=== PATIENT | male | born 1985 | race Caucasian/White ===

== ENCOUNTER 2023-01-28 10:07 | Emergency (ER) | payer BC ==
[2023-01-28] MEDS ORDERED: SODIUM CHLORIDE 0.9% 1000 ML INFUS.BAG IV ONE (10:32)
[2023-01-28] MEDS ORDERED: morphine CARPU-JECT 4 MG/1 ML DISP.SYRIN IVPUSH ONE (10:32)
[2023-01-28] MEDS ORDERED: ONDANSETRON 4 MG/2 ML VIAL IVPUSH ONE (10:32)
[2023-01-28] MEDS ORDERED: morphine SULFATE 4 MG/ML VIAL ONE (10:43)
[2023-01-28] MEDS ORDERED: ONDANSETRON 4 MG/2 ML VIAL ONE (10:43)
[2023-01-28 10:59] LABS: INR 0.99 (0.83-1.09); PROTHROMBIN TIME (PATIENT) 11.5 SEC (9.7-13.0)
[2023-01-28 11:02] LABS: ACTIVATED PTT 27.8 SECONDS (25.2-36.5)
[2023-01-28 11:10] LABS: HEMATOCRIT 44.7 % (35.4-49); HEMOGLOBIN 14.8 G/dL (11.7-16.9); MCH 27.2 pg (25.7-33.7); MCHC 33.2 g/dl (32.0-35.9); MEAN CELL VOLUME 82.1 fl (80-96); MEAN PLT VOLUME 9.2 fl (7.5-11.1); PLATELET COUNT 205.6 10^3/uL (134-434); RBC 5.45 10^6/uL (4.00-5.60); WHITE BLOOD COUNT 3.3 10^3/uL (4.0-10.8)
[2023-01-28 11:14] VITALS: BP 136/95; PULSE 67; RESP 16; TEMP 99; BMI 25.8
[2023-01-28 11:15] LABS: ALBUMIN 4.6 g/dl (3.4-5.0); BILIRUBIN,TOTAL 0.8 mg/dl (0.2-1); BLOOD UREA NITROGEN 12.7 mg/dl (7-18); CALCIUM 9.6 mg/dl (8.5-10.1); CREATININE 0.9 mg/dl (0.6-1.3); POTASSIUM 4.2 mmol/L (3.5-5.1); SGOT/AST 15.5 U/L (15-37); SGPT/ALT 16.5 U/L (7-52); TOT PROT 7.2 g/dl (6.4-8.2)
[2023-01-28 11:41] LABS: PLATELET ESTIMATE ADEQUATE
[2023-01-28] MEDS ORDERED: KETOROLAC TROMETHAMINE 30 MG/1 ML VIAL IVPUSH ONE (15:58)
[2023-01-28] MEDS ORDERED: KETOROLAC TROMETHAMINE 30 MG/1 ML VIAL ONE (16:02)
== END 2023-01-28 16:13 | disposition home or self-care (01) ==
LOC: FER 10:07
PROC: 3E0333Z Introduction of Anti-inflammatory into Peripheral Vein, Percutaneous Approach (ICD-10-PCS; principal; 2023-01-28)
PROC: 3E033GC Introduction of Other Therapeutic Substance into Peripheral Vein, Percutaneous Approach (ICD-10-PCS; 2023-01-28)
PROC: 3E033GC Introduction of Other Therapeutic Substance into Peripheral Vein, Percutaneous Approach (ICD-10-PCS; 2023-01-28)
DX: R10.11 Right upper quadrant pain (principal); R11.0 Nausea; R10.31 Right lower quadrant pain
CPT/HCPCS: 36415; 74177-TC; 76705-TC; 76775-TC; 80053; 81003; 83605; 83690; 85027; 85610; 85730; 86850; 86900; 86901; 87086; 99285-25; C1887; Q9967

== ENCOUNTER 2023-02-04 15:33 | Emergency (ER) | payer BC ==
[2023-02-04 15:46] VITALS: RESP 17; BMI 26.6
[2023-02-04] MEDS ORDERED: SODIUM CHLORIDE 0.9% 500 ML INFUS.BAG IV ONE (16:29)
[2023-02-04 17:08] LABS: BASO % 0.5 % (0-2.0); EOS % 1.7 % (0-4.5); HEMATOCRIT 43.3 % (35.4-49); HEMOGLOBIN 14.5 GM/dL (11.7-16.9); LYMPH % 51.3 % (8-40); MCH 26.7 pg (25.7-33.7); MCHC 33.6 g/dl (32.0-35.9); MEAN CELL VOLUME 79.5 fl (80-96); MEAN PLT VOLUME 7.9 fl (7.5-11.1); MONO % 9.3 % (3.8-10.2); NEUT % 37.2 % (42.8-82.8); PLATELET COUNT 248 10^3/uL (134-434); RBC 5.44 M/mm3 (4.00-5.60); RDW 14.2 % (11.9-15.9); WHITE BLOOD COUNT 3.4 K/mm3 (4.0-10.0)
[2023-02-04 17:29] LABS: POTASSIUM 4.1 mmol/L (3.5-5.1)
[2023-02-04 17:31] LABS: ALBUMIN 4.3 g/dl (3.4-5.0); CALCIUM 9.2 mg/dL (8.5-10.1)
[2023-02-04 17:32] LABS: BLOOD UREA NITROGEN 8.3 mg/dL (7-18)
[2023-02-04 17:36] LABS: BILIRUBIN,TOTAL 1.1 mg/dL (0.2-1); TOT PROT 7.8 g/dl (6.4-8.2)
[2023-02-04 18:45] VITALS: BP 151/104; PULSE 60; TEMP 98.1
[2023-02-04] MEDS ORDERED: ACETAMINOPHEN 1000 MG/100 ML BAG IVPB ONE (18:53)
[2023-02-04] MEDS ORDERED: CIPROFLOXACIN 200 MG/D5W 100 ML IVPB ONE (18:53)
[2023-02-04] MEDS ORDERED: ACETAMINOPHEN INJECTION 100 ML IVPB ONE (19:11)
[2023-02-04] MEDS ORDERED: POLYETHYLENE GLYCOL (HEALTHYLAX) 3350 17 GM PACKET ONE (19:11)
[2023-02-04] MEDS ORDERED: POLYETHYLENE GLYCOL (HEALTHYLAX) 3350 17 GM PACKET PO ONE (19:15)
== END 2023-02-04 19:57 | disposition home or self-care (01) ==
LOC: JER 15:33
PROC: 3E03329 Introduction of Other Anti-infective into Peripheral Vein, Percutaneous Approach (ICD-10-PCS; principal; 2023-02-04)
PROC: 3E03329 Introduction of Other Anti-infective into Peripheral Vein, Percutaneous Approach (ICD-10-PCS; 2023-02-04)
PROC: 3E033NZ Introduction of Analgesics, Hypnotics, Sedatives into Peripheral Vein, Percutaneous Approach (ICD-10-PCS; 2023-02-04)
DX: R10.12 Left upper quadrant pain (principal); K52.9 Noninfective gastroenteritis and colitis, unspecified; R10.32 Left lower quadrant pain
CPT/HCPCS: 36415; 74177-TC; 80053; 85025; 99285-25

== ENCOUNTER 2023-08-19 19:53 | Emergency (ER) | payer BC, OTHER ==
[2023-08-19 20:01] VITALS: BP 151/108; PULSE 72; RESP 18; TEMP 98; BMI 25.8
[2023-08-19] MEDS ORDERED: morphine SULFATE 4 MG/ML VIAL ONE (20:12)
[2023-08-19] MEDS ORDERED: ONDANSETRON 4 MG/2 ML VIAL ONE (20:12)
[2023-08-19 20:23] LABS: HEMATOCRIT 46.3 % (35.4-49); HEMOGLOBIN 15.3 G/dL (11.7-16.9); MCH 27.2 pg (25.7-33.7); MEAN CELL VOLUME 82.3 fl (80-96); MEAN PLT VOLUME 8.8 fl (7.5-11.1); PLATELET COUNT 213.8 10^3/uL (134-434); RBC 5.62 10^6/uL (4.00-5.60); RDW 14.9 % (11.9-15.9); WHITE BLOOD COUNT 3.9 10^3/uL (4.0-10.8)
[2023-08-19] MEDS: ONDANSETRON 4 MG/2 ML VIAL IVPB ONE (20:26)
[2023-08-19] MEDS: SODIUM CHLORIDE 1,000 ML IV ONE (20:26)
[2023-08-19] MEDS: morphine CARPU-JECT 4 MG/1 ML DISP.SYRIN IVPUSH ONE (20:26)
[2023-08-19 20:33] LABS: INR 0.95 (0.83-1.09); PROTHROMBIN TIME (PATIENT) 10.9 SEC (9.7-13.0)
[2023-08-19 20:46] LABS: ALBUMIN 4.6 g/dl (3.4-5.0); TOT PROT 7.5 g/dl (6.4-8.2)
[2023-08-19] MEDS: morphine CARPU-JECT 2 MG/1 ML DISP.SYRIN IVPUSH ONE (21:49)
[2023-08-19] MEDS ORDERED: SIMETHICONE 80 MG TAB.CHEW (FP) ONE (21:50)
[2023-08-19] MEDS: SIMETHICONE 80 MG TAB.CHEW (FP) PO STA (21:53)
[2023-08-19] MEDS: HYOSCYAMINE SULFATE 0.125 MG *ODT PO ONE (22:24)
== END 2023-08-20 00:18 | disposition home or self-care (01) ==
LOC: FER 19:53
PROC: 3E030GC Introduction of Other Therapeutic Substance into Peripheral Vein, Open Approach (ICD-10-PCS; principal; 2023-08-19)
PROC: 3E030GC Introduction of Other Therapeutic Substance into Peripheral Vein, Open Approach (ICD-10-PCS; 2023-08-19)
PROC: 3E0337Z Introduction of Electrolytic and Water Balance Substance into Peripheral Vein, Percutaneous Approach (ICD-10-PCS; 2023-08-19)
DX: R10.31 Right lower quadrant pain (principal); R11.0 Nausea
CPT/HCPCS: 36415; 74177-TC; 80053; 81003; 83605; 85027; 85610; 86850; 86900; 86901; 99285-25; Q9967